=== PATIENT | male | born 1970 | race Caucasian/White ===

== ENCOUNTER → 2018-03-17 | Outpatient (CLI) | payer BC ==
--- NOTE | 2018-03-17 17:19 | CONS ---
CONSULTATION DATE OF SERVICE: 03/17/2018 47-year-old gentleman has been evaluated in the sleep center for possible obstructive sleep apnea-hypopnea syndrome. HISTORY OF PRESENT ILLNESS SLEEP-WAKE EVALUATION: SLEEP SCHEDULE: Patient usual sleep schedule on weekdays from 11:00 p.m. to 6 a.m. and on weekends from midnight until 8 or 9:00 a.m. FALLING ASLEEP: Usually no problems with falling asleep, although he has TV set in bedroom. DURING SLEEP: He usually sleeps on the back position with loud snoring, according to his and awakenings from sleep once with nocturia. No history of hypnagogic hallucinations, sleep paralysis or cataplexy. DURING THE DAY/SLEEP WAKE EVALUATION: During the day, patient feels sleepy, has problem with memory and concentration. [place] Sleepiness Scale significantly increased to 13. He may take naps around 2 pm. PAST MEDICAL HISTORY: Positive for hyperlipidemia, some problem breathing through the nose. SURGICAL HISTORY: Tonsillectomy, vasectomy. MEDICATIONS: Lipitor. Nasonex. SOCIAL HISTORY: Negative for smoking. Alcohol consumption occasional. FAMILY HISTORY: Heart problems. Asthma. REVIEW OF SYSTEMS: Awakenings from sleep, sleepiness during the day, snoring. PHYSICAL EXAM: gentleman without distress. BP 150/90, HR 86, RR 16, height 5 feet 9 inches, weight 216, body mass index 31.8, temperature 98.3, oxygen saturation at room air 95%. Oropharynx: Extremely low position of soft palate. Mallampati 4. A small mandibular overbite, several mm. Significant restriction of nasal breathing bilaterally. Wide neck 17-1/2 inches in circumference. Neck Supple, no JVD. Thyroid is not palpable. LUNGS Clear to percussion and to auscultation. Good air exchange. No wheezing or rhonchi. HEART S1, S2 regular. No murmurs, gallops, or rubs. ABDOMEN: Obese. Soft and nontender. Bowel sounds are present. No organomegaly appreciated. EXTREMITIES No clubbing or cyanosis. PRODUCTION TRAINER Awake, alert, and oriented X3. Cranial nerves 2 to 7 intact. There is no fasciculation or atrophy. noted. No focal deficits observed. IMPRESSION: 1. Loud snoring. Extremely low position of soft palate. Restriction of nasal breathing. Overbite, small mandibular. Wide neck, sleepiness, obstructive sleep apnea-hypopnea syndrome. 2. Mild obesity, body mass index 31.8. 3. Restriction of nasal breathing status post nasal fracture, possibly nasal septal deviation. 4. Hyperlipidemia. 5. Status post tonsillectomy. 6. Status post vasectomy. PLAN: 1. Polysomnography for evaluation of patient's breathing during sleep. 2. CPAP/BiPAP titration if sleep study confirms obstructive sleep apnea-hypopnea syndrome. 3. Preferable position during sleep on the side. 4. No driving if patient feels any sleepiness. 5. I will see patient for follow up visit to explain results of testing and following plan. Simone Rockwell MD, PhD, FAASM Diplomat of [employer] [employer] Secretary of [facility] [place] MMODL / IJN: [id number] /
== END | disposition home or self-care (01) ==
LOC: SLEEP 13:49
PROVIDERS: ATTEND Internal Medicine
DX: G47.33 Obstructive sleep apnea (adult) (pediatric) (principal); E66.9 Obesity, unspecified; E78.5 Hyperlipidemia, unspecified; Z68.31 Body mass index [BMI] 31.0-31.9, adult; Z90.89 Acquired absence of other organs; Z79.899 Other long term (current) drug therapy
CPT/HCPCS: 99211

== ENCOUNTER 2023-03-26 13:46 | Emergency (ER) | payer BC ==
--- NOTE | 2023-03-26 14:55 | CT ---
EXAMINATION TYPE: CT brain shreyasine wo con DATE OF EXAM: 03/26/2023 COMPARISON: CT brain August 15, 2015 HISTORY: headache after fall on ice yesterday. 10 second LOC. Neck pain after trauma. CT DLP: 1564.5 mGycm. Automated Exposure Control for Dose Reduction was Utilized. TECHNIQUE: CT scan of the head and cervical spine are performed without contrast. FINDINGS: There is no acute intracranial hemorrhage, mass effect, or midline shift identified. The ventricles and sulci are within normal limits in size. Osuna-white matter differentiation is maintai vicki. The calvarium is intact. Right-sided nasal septal deviation is redemonstrated The globes are int act and the visualized sinuses are clear. Cervical spine is visualized in its entirety from C1 through upper thoracic levels and demonstrates s atisfactory alignment without evidence of acute fracture or dislocation. Prevertebral soft tissue ap pears within normal limits. The C1-C2 articulation is within normal limits on the coronal images. V ertebral body heights are maintained. There is moderate to severe disc space narrowing with moderate spurring at C6-C7 level. Posterior spurring and/or spur disc complex effacing the anterior thecal sac at this level. Axial images show multilevel left-sided uncovertebral facet degenerative changes. Thy roid gland is normal in size. Lung apices are clear without pneumothorax. IMPRESSION: 1. There is no acute fracture or dislocation evident in the cervical spine. 2. No acute intracranial hemorrhage or midline shift is seen.
--- NOTE | 2023-03-26 15:22 | ED ---
Head Injury HPI - General Chief complaint: Head Injury Stated complaint: FALL,HEAD INJURY Source: patient Mode of arrival: ambulatory Limitations: no limitations - History of Present Illness Initial comments: Josafat is a pleasant 52yo M who presents to the ER via private vehicle for evaluation of injury. Patient reports last night he slipped and fell on the ice. He thinks he might have lost consciousness for 5-10 seconds but he is feeling okay. He slept through the night he woke up this morning and went to work but by midday he had a significant headache that did not respond to Tylenol. Patient became concerned because he doesn't typically have headaches and he did note a large lump on the back of his head secondary to the ER for evaluation. Does patient does not take any anticoagulant medications. No history of significant head trauma in the past. - Related Data Allergies/Adverse reactions: Allergies Allergy/AdvReac Type Severity Reaction Status Date / Time No Known Allergies Allergy Verified 03/26/23 14:18 Review of Systems ROS Statement: Those systems with pertinent positive or pertinent negative responses have been documented in the HPI. ROS Other: All systems not noted in ROS Statement are negative. Past Medical History Past Medical History: Hypertension Additional Past Medical History / Comment(s): High cholestrol History of Any Multi-Drug Resistant Organisms: None Reported Past Surgical History: No Surgical Hx Reported Past Psychological History: No Psychological Hx Reported Smoking Status: Never smoker Past Alcohol Use History: Occasional Past Drug Use History: None Reported General Exam Limitations: no limitations General appearance: alert, in no apparent distress Head exam: Present: normocephalic, other (Hematoma on occipital scalp) Eye exam: Present: normal appearance, PERRL, EOMI Pupils: Present: normal accommodation ENT exam: Present: normal exam Respiratory exam: Absent: respiratory distress Cardiovascular Exam: Present: regular rate GI/Abdominal exam: Present: soft. Absent: distended Rectal exam: Present: deferred Neurological exam: Present: alert, oriented X3. Absent: altered Psychiatric exam: Present: normal affect, normal mood Skin exam: Present: warm, dry, intact Course Vital Signs 03/26/23 14:11 Temperature 98.2 F Pulse Rate 78 Respiratory 17 Rate Blood Pressure 160/81 O2 Sat by Pulse 95 Oximetry Medical Decision Making - Medical Decision Making Was pt. sent in by a medical professional or institution (, PA, INSURANCE VERIFICATION REP, urgent care, hospital, or correction...) When possible be specific @ -No Did you speak to anyone other than the patient for history (EMS, parent, family, police, friend...)? What history was obtained from this source @ at bedside Did you review nursing and triage notes (agree or disagree)? Why? @ -I reviewed and agree with nursing and triage notes Were old charts reviewed (outside hosp., previous admission, EMS record, old EKG, old radiological studies, urgent care reports/EKG's, correction records)? Report findings @ -No old charts were reviewed Differential Diagnosis (chest pain, altered mental status, abdominal pain women, abdominal pain men, vaginal bleeding, weakness, fever, dyspnea, syncope, headache, dizziness, GI bleed, back pain, seizure, CVA, palpatations, mental health)? @ -Differential Headache: Migraine, tension, cluster, carbon monoxide, central venous thrombosis, pension karma temporal arteritis, acute closure glaucoma, intercranial hemorrhage, mastoiditis, sinusitis, head injury, this is not meant to be an all-inclusive list. EKG interpreted by me (3pts min.). @ -As above X-rays interpreted by me (1pt min.). @ -None done CT interpreted by me (1pt min.). @ No evidence of skull fracture or brain bleed U/S interpreted by me (1pt. min.). @ -None done What testing was considered but not performed or refused? (CT, X-rays, U/S, labs)? Why? @ -None What meds were considered but not given or refused? Why? @ -None Did you discuss the management of the patient with other professionals (professionals i.e. , PA, INSURANCE VERIFICATION REP, lab, RT, psych nurse, public health social worker, commissions analyst, teacher, boat officer, shoe caser)? Give summary @ -No Was smoking cessation discussed for >3mins.? @ -No Was critical care preformed (if so, how long)? @ -No Were there social determinants of health that impacted care today? How? (Homelessness, low income, unemployed, alcoholism, drug addiction, transportation, low edu. Level, literacy, decrease access to med. care, shelter, rehab)? @ -No Was there de-escalation of care discussed even if they declined (Discuss DNR or withdrawal of care, Hospice)? DNR status @ -No What co-morbidities impacted this encounter? (DM, HTN, Smoking, COPD, CAD, Cancer, CVA, ARF, Chemo, Hep., AIDS, mental health diagnosis, sleep apnea, morbid obesity)? @ -None Was patient admitted / discharged? Hospital course, mention meds given and route, prescriptions, significant lab abnormalities, going to OR and other pertinent info. @ -Charged The patient was seen and evaluated, history is obtained from the patient at bedside. Head CT was obtained and there is no acute findings. I discussed the patient and I suspect he is suffering from a concussion. I recommend brain rest, decreased stimulation environment, decreased screen time. No work remainder of today or tomorrow, rest for the weekend, no physical exertion. Undiagnosed new problem with uncertain prognosis? @ -No Drug Therapy requiring intensive monitoring for toxicity (Heparin, Nitro, Insulin, Cardizem)? @ -No Were any procedures done? @ -No Diagnosis/symptom? @ -Concussion Acute, or Chronic, or Acute on Chronic? @ -Acute Uncomplicated (without systemic symptoms) or Complicated (systemic symptoms)? @ -default Side effects of treatment? @ -No Exacerbation, Progression, or Severe Exacerbation? @ -No Poses a threat to life or bodily function? How? (Chest pain, [place], [place], pneumonia, PE, COPD, DKA, ARF, appy, cholecystitis, CVA, Diverticulitis, Homicidal, Suicidal, threat to staff... and all critical care pts) @ -No Disposition Clinical Impression: Concussion Disposition: HOME SELF-CARE Instructions (If sedation given, give patient instructions): Concussion (ED) Is patient prescribed a controlled substance at d/c from ED?: No Referrals: Ravi Barrett MD [Primary Care Provider] - 1-2 days
[2023-03-26 16:36] VITALS: BP 142/79; PULSE 70; RESP 16; TEMP 98.1
== END 2023-03-26 16:25 | disposition home or self-care (01) ==
LOC: EC 13:46
DX: S00.03XA Contusion of scalp, initial encounter (principal); S06.0X0A Concussion without loss of consciousness, initial encounter; I10 Essential (primary) hypertension; R40.2410 Glasgow coma scale score 13-15, unspecified time; W00.0XXA Fall on same level due to ice and snow, initial encounter
CPT/HCPCS: 70450; 72125; 99283